=== PATIENT | female | born 1975 | race Caucasian/White ===

== ENCOUNTER 2020-05-21 17:30 | Emergency (ER) | payer OTHER ==
[2020-05-21] MEDS ORDERED: AMOXICILLIN875 MG PO (18:19)
[2020-05-21] MEDS ORDERED: MOTRIN600 MG PO (18:19)
== END 2020-05-21 18:54 | disposition home or self-care (01) ==
LOC: FER 17:30
DX: K04.7 Periapical abscess without sinus (principal); E11.9 Type 2 diabetes mellitus without complications; Z79.84 Long term (current) use of oral hypoglycemic drugs; Z88.1 Allergy status to other antibiotic agents
CPT/HCPCS: 99282